=== PATIENT | female | born 2000 | race Caucasian/White ===

== ENCOUNTER 2025-05-02 16:24 | Emergency (ER) | payer OTHER, SELFPAY ==
[2025-05-02 16:43] VITALS: BP 110/69
[2025-05-02 17:03] LABS: Hematocrit 40.9 % (37.0-47.0); Hemoglobin 14.6 g/dL (12.0-16.0); Mean Corp Hgb Conc. 35.7 g/dL (33.0-37.0); Mean Corpuscular Volume 89.5 fL (81.0-99.0); Nucleated Red Blood Cells % 0 %; Platelet Count 190 10^3/uL (130-400); Red Cell Dist. Width 11.2 % (11.5-14.5)
[2025-05-02 17:15] LABS: HCG, Serum Qualitative Screen Negative
[2025-05-02 17:21] LABS: COVID-19 Antigen Negative (Negative)
[2025-05-02 17:27] LABS: ALT (SGPT) 16 U/L (0-35); AST (SGOT) 19 U/L (14-36); Albumin 4.9 g/dl (3.5-5.0); Alkaline Phosphatase 50 U/L (38-126); Blood Urea Nitrogen 13 mg/dl (7-17); Calcium 9.6 mg/dl (8.4-10.2); Carbon Dioxide 19 mmol/L (22-30); Chloride 104 mmol/L (98-107); Glucose 99 mg/dl (70-99); Lipase 66 U/L (23-300); Potassium 3.9 mmol/L (3.5-5.1); Sodium 134 mmol/L (135-145); Total Protein 8.0 g/dl (6.3-8.2); eGFR > 60.00
--- NOTE | 2025-05-02 18:40 | ED.GENMED ---
History of Present Illness
General
Chief Complaint: Abdominal Symptoms
Source: patient
Time Seen by Provider: 05/02/25 18:30
History of Present Illness
History of Present Illness:
24-year-old female presenting to the ER for evaluation of nausea vomiting and diarrhea that began earlier today, notes that she has not been able to keep anything down during this time and feels dehydrated. No fevers, chills or rigors. No recent
travel or recent antibiotics but she does note that her significant other is sick with similar symptoms. Patient states she is not concerned for . Social history otherwise noncontributory.
Past History
Past History
ED Past Medical History: Asthma
ED Past Surgical History: Tonsilectomy and Other
Social History
Tobacco: Non-smoker
Alcohol: None
Drug: None
Personal: Single
Living: with family
Review of Systems
Review of Systems
All Other Systems: ROS reviewed and negative except as documented in HPI and ROS
Phy Exam
Physical Exam
Physical Exam:
GENERAL: Alert , in no apparent distress
EYE: clear conjunctiva b/l
HEAD: NCAT
ENT: o/p clr, mmm.
CARDIAC: Mildly tachycardic rate, normal rhythm
LUNGS: Clear breath sounds bilaterally, no acute respiratory distress, no wheezes/rales/rhonchi
ABDOMEN: Soft, without focal tenderness, no r/g, no cvat
NEUROLOGICAL: Alert and oriented
SKIN: Warm and dry, skin intact.
MUSCULOSKELETAL: No edema, well perfused.
PSYCH: Normal and appropriate interaction.
Scores
Heart Failure Risk
Heart Failure Risk Score: Not Applicable
Heart Score for Chest Pain Patients
STEMI patient?: Not applicable
Withdrawal Assessment of Alcohol
Withdrawal Assessment Completed?: Not applicable
Course
Orders/Labs/Results
Orders:
Orders
05/02/25 16:46
Test Result ONCE
05/02/25 16:56
COVID-19 Antigen Urgent
Source: Nasal Swab
Complete Blood Count/With Diff Urgent
Comprehensive Metabolic Panel Urgent
HCG, Serum Qualitative Screen Urgent
Lipase Urgent
Influenza A+B Rapid Molecular Urgent
ALE Source: Nasal Swab
Specimen Description:
05/02/25 17:49
EKG [Electrocardiogram (*1)] Urgent
Reason for Study: Vertigo / Dizzy
EKG- Treatment ONCE
05/02/25 18:33
0.9% Sodium Chloride 1000 ml [Nss] 1,000 ml IV BOLUS
Ondansetron Injectable [Zofran] 4 mg IV NOW STA
Abnormal Lab Results
05/02/25
16:56
MCH 31.9 H pg
(27.0-31.0)
RDW 11.2 L %
(11.5-14.5)
MPV 12.0 H fL
(7.4-10.4)
Absolute Neuts (auto) 9.2 H 10^3/uL
(1.4-6.5)
Absolute Lymphs (auto) 0.3 L 10^3/uL
(1.2-3.4)
Neutrophils % 91.4 H %
(42.2-75.2)
Lymphocytes % 3.3 L %
(20.5-51.1)
Sodium 134 L mmol/L
(135-145)
Carbon Dioxide 19 L mmol/L
(22-30)
Total Bilirubin 1.5 H mg/dl
(0.2-1.3)
05/02/25 16:56
05/02/25 16:56
Vital Signs
Initial and Last Documented VS:
Initial Vital Signs
Temp Pulse Resp BP Pulse Ox
97.8 F 118 18 110/69 99
05/02/25 16:43 05/02/25 16:43 05/02/25 16:43 05/02/25 16:43 05/02/25 16:43
Last Documented Vital Signs
Temp Pulse Resp BP Pulse Ox
97.8 F 118 18 110/69 99
05/02/25 16:43 05/02/25 16:43 05/02/25 16:43 05/02/25 16:43 05/02/25 18:43
MDM/Problems Addressed
Differential Diagnosis Includes:
Gastroenteritis
Dehydration
Electrolyte imbalance
UTI
MDM/Problems Addressed:
24-year-old female presenting to the ER for evaluation of nausea vomiting diarrhea today, significant other with similar symptoms over the last 24 hours. Patient mildly tachycardic but afebrile, no acute distress. Labs initiated on arrival, no
leukocytosis, chemistry reassuring. test negative. Will treat with Zofran and fluids. Anticipate discharge home with continued supportive care.
*Pulse Oximetry
SaO2: 99
Oxygen Mode of Delivery: Room air
Patient hypoxic: no
*Critical Care Note
Total Time (30-74mins, 75-104mins- exclusive of procedures): Not Applicable
Patient Management
Escalation/DeEscalation of care consider admission/obs:
Patient feeling improved with medication. Stable for discharge home. Continue BRAT diet. Prescription for Zofran sent to pharmacy. Aware precautions to the ER.
ED Attending Note
-
Portions of this chart may have been created with voice recognition software.� Occasional wrong word or��sound alike� substitutions may have occurred due to the inherent limitations of voice recognition software.
Discharge Plan
Departure
Patient Disposition: Home (Routine Discharge)
Date of Disposition: 05/02/25
Time of Disposition: 19:27
Patient with high blood pressure during this ER visit?: No
Discharge Problem:
Nausea, vomiting, and diarrhea
Instructions: Nausea and Vomiting, Adult (DC)
Prescriptions:
New
ondansetron 4 mg tablet,disintegrating
4 mg PO TIDPRN PRN (Reason: nausea/vomiting) Qty: 10 0RF
Referrals:
John Camargo I., DO [Family Provider, Internal Medicine]
Stand Alone Forms: Return to Work
Interventions
Interventions:
*General Assessment Last Done: 05/02/25 16:45
*Neglect/Abuse Screening Last Done: 05/02/25 16:45
*ED COVID-19 Vaccine History Last Done: 05/02/25 16:45
*ED Influenza Vaccine History Last Done: 05/02/25 16:45
*Risk Screen - Suicide (C-SSRS) Last Done: 05/02/25 16:45
UI-Jkgzur-Ftqmyegzza Assessment Last Done: 05/02/25 19:24
Discharge Date and Time
Print Language: SLOVAK
[2025-05-02] MEDS: NSS 1000 IV (19:03)
[2025-05-02] MEDS: ZOFRAN 4 MG IV (19:04)
[2025-05-02 19:36] VITALS: BP 112/72
== END 2025-05-02 20:15 | disposition home or self-care (01) ==
LOC: EMR 16:24
PROVIDERS: EMERGENCY PHYSICIAN Emergency Medicine; FAMILY PHYSICIAN Internal Medicine
DX: R11.2 Nausea with vomiting, unspecified (principal); R19.7 Diarrhea, unspecified; J45.909 Unspecified asthma, uncomplicated
CPT/HCPCS: 99284; 96374; 96361; 80053; 83690; 84703; 85025; 87502; 87811; 93005